=== PATIENT | male | born 1990 | race Caucasian/White ===

== ENCOUNTER → 2020-04-14 12:39 | Outpatient (CLI) | payer SELFPAY ==
[2020-04-15 08:53] LABS: Covid-19 Nasal PCR Sendout Lex NOT DETECTED
== END ==
PROVIDERS: Visit Provider Internal Medicine Adolescent Medicine
DX: Z20.828 Contact with and (suspected) exposure to other viral communicable diseases (principal)
CPT/HCPCS: 36415; U0004

== ENCOUNTER 2024-12-17 10:25 | Outpatient (CLI) | payer SELFPAY ==
[2024-12-17 15:50] LABS: Human Rhinovirus Not Detected (NotDetected); Influenza A, PCR Not Detected (NotDetected); Influenza B, PCR Not Detected (NotDetected); Respiratory Syncytial Virus Not Detected (NotDetected)
[2024-12-17 17:54] LABS: Coronavirus 19, PCR Detected (NotDetected)
== END 2024-12-17 23:59 | disposition home or self-care (01) ==
LOC: LAB.DROPOF 12-18 10:50
PROVIDERS: PCP Nurse Practitioner; Visit Provider Nurse Practitioner
DX: R50.9 Fever, unspecified (principal)
CPT/HCPCS: 87631